=== PATIENT | male | born 1945 | race Caucasian/White ===

== ENCOUNTER 2021-06-26 17:43 | Emergency (ER) | payer OTHER ==
[2021-06-26] MEDS: Ibuprofen 200 MG Tab PO ONE (18:45)
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
== END 2021-06-26 20:24 | disposition home or self-care (01) ==
LOC: VM.ED 17:43
DX: S20.219A Contusion of unspecified front wall of thorax, initial encounter (principal); V89.2XXA Person injured in unspecified motor-vehicle accident, traffic, initial encounter; Y92.410 Unspecified street and highway as the place of occurrence of the external cause
CPT/HCPCS: 71046; 99283; 99284-25; A9270-GY